=== PATIENT | female | born 1995 | race Caucasian/White ===

== ENCOUNTER 2018-01-27 02:41 | Emergency (ER) | payer MEDICAID, OTHER ==
[2018-01-27] MEDS ORDERED: DEXAMETHASONE 10 MG/ML VIAL PO STA (03:21)
[2018-01-27] MEDS ORDERED: CHERRY SYRUP 10 ML UDC PO ONE (03:25)
--- NOTE | 2018-01-27 03:31 | ED Physician Documentation ---
PD HPI SKIN - Stated complaint Stated Complaint: FACIAL SWELLING,RASH - Chief complaint Chief Complaint: Allergic Rx - History obtained from History obtained from: Patient - History of Present Illness Timing - onset: How many hours ago (7) Timing - details: Gradual onset, Still present Location: Face, Neck, Chest Quality / character: Itchy Associated symptoms: Facial swelling Contributing factors: Exposed to medication (Bactrim) Recently seen: Clinic - Additional information Additional information: The patient is a 22-year-old female who presents with facial swelling, hives and itching. Her symptoms started about 7 hours prior to arrival, and she believes it is caused by Bactrim that she started yesterday for urinary tract infection. She denies cough or shortness of breath. She denies fever. She denies history of similar symptoms in the past. Review of Systems Constitutional: denies: Fever Eyes: denies: Irritation Nose: denies: Congestion Throat: denies: Sore throat Respiratory: denies: Dyspnea, Cough GI: denies: Abdominal Pain, Nausea, Vomiting : reports: Other (Recently diagnosed with urinary tract infection.) Skin: reports: Rash Musculoskeletal: denies: Extremity swelling Neurologic: denies: Headache PD PAST MEDICAL HISTORY - Past Medical History Cardiovascular: None Respiratory: None Endocrine/Autoimmune: None - Past Surgical History Past Surgical History: Yes Ortho: Other - Present Medications Home Medications: Ambulatory Orders Medication Instructions Recorded Confirmed Etonogestrel/Ethinyl Estradiol 1 each VG 02/20/15 02/20/15 [Nuvaring Vaginal Ring] Celecoxib [CeleBREX] 200 mg PO BID 01/27/18 01/27/18 FLUoxetine [PROzac] 40 mg PO DAILY 01/27/18 01/27/18 Gabapentin 300 mg PO 01/27/18 01/27/18 Nitrofurantoin [Macrobid] 100 mg PO BID #10 capsule 01/27/18 - Allergies Allergies/Adverse Reactions: Allergies Allergy/AdvReac Type Severity Reaction Status Date / Time sertraline Allergy Respiratory Verified 01/27/18 02:57 sulfamethoxazole Allergy Rash Verified 01/27/18 02:57 [From Bactrim] trimethoprim [From Bactrim] Allergy Rash Verified 01/27/18 02:57 - Social History Does the pt smoke?: No Smoking Status: Light tobacco smoker Does the pt drink ETOH?: Yes Does the pt have substance abuse?: No - Immunizations Immunizations are current?: Yes PD ED PE NORMAL - Vitals Vital signs reviewed: Yes (Borderline hypertension initially.) - General General: Alert and oriented X 3, Other (Overweight.) - HEENT HEENT: Atraumatic, Moist mucous membranes, Pharynx benign - Neck Neck: Supple, no meningeal sign, No adenopathy, No JVD - Cardiac Cardiac: RRR - Respiratory Respiratory: No respiratory distress, Clear bilaterally - Abdomen Abdomen: Soft, Non tender - Back Back: No CVA TTP - Derm Derm: Other (Flushed appearance to the face, with fine papular rash extending over the neck and anterior chest.) - Extremities Extremities: No edema - Neuro Neuro: Alert and oriented X 3, Normal speech Results - Vitals Vitals: Vital Signs - 24 hr 01/27/18 02:52 Temperature 36.7 C Heart Rate 75 Respiratory 18 Rate Blood Pressure 131/91 H O2 Saturation 100 Oxygen O2 Source Room air PD MEDICAL DECISION MAKING - ED course Complexity details: re-evaluated patient, considered differential, d/w patient ED course: The patient's presentation is most consistent with allergic reaction to trimethoprim sulfamethoxazole. Her reaction is dermal, and there is no evidence of respiratory involvement. Treatment in the emergency department included administration of dexamethasone 10 mg orally. No further Benadryl was administered because the patient needs to be able to drive home. I discussed with her the expected course of illness, advised discontinuing Bactrim, and prescribed Macrobid to treat her urinary tract infection. I discussed with her potentially worrisome signs or symptoms that should prompt reevaluation in the emergency department. Departure - Departure Disposition: 01 Home, Self Care Clinical Impression: Allergic urticaria Condition: Stable Instructions: ED Drug React Allergic Follow-Up: Wilfred Phelps MD [Primary Care Provider] - Prescriptions: Nitrofurantoin [Macrobid] 100 mg PO BID #10 capsule Comments: Discontinue Bactrim. You can use Macrobid as prescribed to treat urinary tract infection. You can use Benadryl, up to 50 mg every 6 hours if needed for rash or itching. Follow-up with your primary physician within 1 week. Call to schedule an appointment. Return to the emergency department if you develop increasing rash, thickness in your throat, difficulty breathing, or otherwise worsening symptoms.
[2018-01-27 03:48] VITALS: BP 129/71
== END 2018-01-27 03:48 | disposition home or self-care (01) ==
LOC: ED 02:41
DX: L50.0 Allergic urticaria (principal); N39.0 Urinary tract infection, site not specified; F17.200 Nicotine dependence, unspecified, uncomplicated
CPT/HCPCS: 99283; A9270

== ENCOUNTER 2018-07-23 08:00 | Outpatient (CLI) | payer OTHER, MEDICAID | END 2018-07-23 23:59 | disposition home or self-care (01) | LOC: LAB.R 08:00 | PROVIDERS: ATTEND Registered Nurse | DX: R10.2 Pelvic and perineal pain (principal) | CPT/HCPCS: 87086; 87491; 87591 ==

== ENCOUNTER 2022-11-08 20:29 | Outpatient (CLI) | payer OTHER | END 2022-11-08 20:30 | disposition short-term general hospital (02) | LOC: EMS 20:29 | DX: S83.004A Unspecified dislocation of right patella, initial encounter (principal); X50.9XXA Other and unspecified overexertion or strenuous movements or postures, initial encounter; Y93.64 Activity, baseball; Y92.320 Baseball field as the place of occurrence of the external cause | CPT/HCPCS: A0425; A0427 ==